=== PATIENT | female | born 1940 | race American Indian/Alaskan Native ===

== ENCOUNTER 2017-09-12 10:42 | Emergency (ER) | payer MEDICARE ==
[2017-09-12 11:44] VITALS: BP 140/82
[2017-09-12 12:29] LABS: Eosinophils % (Auto) 0.5 % (0.0-4.3); Hematocrit 42.2 % (30.3-42.9); Hemoglobin 13.8 gm/dl (10.1-14.3); Mean Corpuscular HGB Conc 33 % (30-34); Mean Corpuscular Hemoglobin 28 pg (28-32); Mean Corpuscular Volume 85 fl (79-97); Platelet Count 314 K/mm3 (140-440); Red Blood Count 4.99 M/mm3 (3.65-5.03); Red Cell Distribution Width 15.1 % (13.2-15.2); White Blood Count 13.3 K/mm3 (4.5-11.0)
[2017-09-12 12:40] LABS: Alanine Aminotransferase 27 units/L (7-56); Albumin 3.8 g/dL (3.9-5); Albumin/Globulin Ratio 1.1 %; Alkaline Phosphatase 156 units/L (35-129); Anion Gap 20 mmol/L; BUN/Creatinine Ratio 15; Blood Urea Nitrogen 12 mg/dL (7-17); Calcium 8.8 mg/dL (8.4-10.2); Carbon Dioxide 25 mmol/L (22-30); Glucose 197 mg/dL (65-100); Potassium 3.3 mmol/L (3.6-5.0); Sodium 144 mmol/L (137-145); Total Protein 7.3 g/dL (6.3-8.2)
[2017-09-12 13:18] LABS: Bacteria,Urine 2+ /HPF (Negative); Mucus,Urine FEW /HPF
[2017-09-12 13:38] LABS: Bilirubin,Urine NEG (Negative); Blood,Urine SM (Negative); Ketones,Urine NEG (Negative); Leukocyte Esterase,Urine TR (Negative); Nitrite,Urine NEG (Negative)
[2017-09-12 13:39] LABS: Protein,Urine >500 mg/dL (Negative)
== END 2017-09-12 13:30 | disposition left against medical advice (07) ==
LOC: ED 10:42
DX: Z53.21 Procedure and treatment not carried out due to patient leaving prior to being seen by health care provider (principal)
CPT/HCPCS: 36415; 80053; 81001; 85025

== ENCOUNTER 2017-09-15 08:31 | Emergency (ER) | payer MEDICARE ==
[2017-09-15 10:39] LABS: Anion Gap 18 mmol/L; BUN/Creatinine Ratio 11; Blood Urea Nitrogen 9 mg/dL (7-17); Calcium 9.2 mg/dL (8.4-10.2); Carbon Dioxide 28 mmol/L (22-30); Chloride 101.5 mmol/L (98-107); Creatine Kinase 123 units/L (30-135); Glucose 190 mg/dL (65-100); Potassium 3.3 mmol/L (3.6-5.0); Sodium 144 mmol/L (137-145)
[2017-09-15 10:40] LABS: Basophils % (Auto) 1.3 % (0.0-1.8); Eosinophils % (Auto) 0.4 % (0.0-4.3); Hematocrit 43.5 % (30.3-42.9); Mean Corpuscular HGB Conc 32 % (30-34); Mean Corpuscular Hemoglobin 27 pg (28-32); Mean Corpuscular Volume 84 fl (79-97); Platelet Count 312 K/mm3 (140-440); Red Blood Count 5.19 M/mm3 (3.65-5.03); Red Cell Distribution Width 15.2 % (13.2-15.2); White Blood Count 12.4 K/mm3 (4.5-11.0)
[2017-09-15] MEDS ORDERED: TORADOL IM ONE (10:45)
[2017-09-15] MEDS ORDERED: K-DUR PO ONE ×2 (11:00→11:05)
--- NOTE | 2017-09-15 11:07 | Emergency Department Report ---
HPI - General Chief Complaint: Pain General Time Seen by Provider: 09/15/17 09:40 - HPI HPI: This is a 77 year-old female who presents to the emergency department, driving herself and to be seen, with a complaint of a one-week history of generalized body pain. She believes that it is secondary to her multiple sclerosis. She also has a past medical history of asthma, diabetes, coronary artery disease, hypertension. She tried some gabapentin that she was prescribed for her symptoms without much relief. She says that she tried to see her primary care doctor regarding the symptoms but that they were away for the day and that she has an appointment coming up in about 10 days. She also has complaint of some pain to the left thumb in which she says that she feels a clicking sensation anytime she moves the thumb. No trauma to this area. Her primary care physician is a Dr. Jossie Frankel. No recent travel or sick contacts at home. She denies any fever, nausea, vomiting, chest pain, shortness of breath, headache or any neurological deficits. ED Past Medical Hx - Past Medical History Previous Medical History?: Yes Hx Hypertension: Yes Hx Heart Attack/AMI: Yes Hx Diabetes: Yes Hx Asthma: Yes Additional medical history: MS - Surgical History Past Surgical History?: Yes Hx Cholecystectomy: Yes Additional Surgical History: fibroids removed - Social History Smoking Status: Never Smoker Substance Use Type: None - Medications Home Medications: Home Medications Medication Instructions Recorded Confirmed Last Taken Type Aspirin EC [Aspirin Enteric Coated 81 mg PO QDAY 07/20/15 07/20/15 Unknown History TAB] AtorvaSTATin [Lipitor] 10 mg PO QDAY 07/20/15 07/20/15 Unknown History Lisinopril [Zestril TAB] 20 mg PO QDAY 07/20/15 07/20/15 Unknown History Metformin HCl [Glucophage] 1,000 mg PO BID 07/20/15 07/20/15 Unknown History Metoprolol [Lopressor TAB] 25 mg PO QDAY 07/20/15 07/20/15 Unknown History Doxycycline [Vibramycin CAP] 100 mg PO Q12HR #20 capsule 07/24/15 Unknown Rx Insulin Aspart Prot/Aspart(Nf) 22 units SUB-Q BIDDIAB 30 Days 07/24/15 Unknown Rx [NovoLOG Mix 70/30 VIAL] Ipratropium/Albuterol Sulfate 1 spray IH QID 30 Days 07/24/15 Unknown Rx [Combivent Respimat] oxyCODONE /ACETAMINOPHEN [Percocet 1 tab PO Q6HR PRN #20 tablet 07/24/15 Unknown Rx 5/325] HYDROcodone/ACETAMINOPHEN [Cascade 1 each PO Q6H PRN #10 tablet 09/15/17 Unknown Rx 5-325 Tablet] ED Review of Systems ROS: Stated complaint: ALL OVER BODY PAIN Other details as noted in HPI Comment: All other systems reviewed and negative Constitutional: denies: chills, fever Eyes: denies: eye pain, eye discharge, vision change ENT: denies: ear pain, throat pain Respiratory: denies: cough, shortness of breath, wheezing Cardiovascular: denies: chest pain, palpitations Gastrointestinal: denies: abdominal pain, nausea, diarrhea Genitourinary: denies: urgency, dysuria, discharge Musculoskeletal: back pain, arthralgia, myalgia Skin: denies: rash, lesions Neurological: denies: headache, weakness, paresthesias Physical Exam - Physical Exam Vital Signs: Vital Signs 09/15/17 09/15/17 08:39 10:02 Temperature 98.7 F Pulse Rate 110 H Respiratory 18 16 Rate Blood Pressure 146/89 O2 Sat by Pulse 98 97 Oximetry Physical Exam: GENERAL: The patient is well-developed well-nourished. HENT: Normocephalic. Atraumatic. Patient has moist mucous membranes. EYES: Extraocular motions are intact. Pupils equal reactive to light bilaterally. NECK: Supple. Trachea is midline. CHEST/LUNGS: Clear to auscultation. There is no respiratory distress noted. HEART/CARDIOVASCULAR: Regular. There is no tachycardia. There is no murmur. ABDOMEN: Abdomen is soft, nontender. Patient has normal bowel sounds. There is no abdominal distention. SKIN: Skin is warm and dry. NEURO: The patient is awake, alert, and oriented. The patient is cooperative. The patient has no focal neurologic deficits. The patient has normal speech and gait. MUSCULOSKELETAL: There is no tenderness to palpation or deformity. Unable to appreciate the patient's complaint of a "click" with left thumb movement. Radial pulses +2 over 4 bilaterally. Privacy Specialist strength +2 over 4 bilaterally. There is no limitation range of motion. There is no evidence of acute injury. ED Course Vital Signs 09/15/17 09/15/17 08:39 10:02 Temperature 98.7 F Pulse Rate 110 H Respiratory 18 16 Rate Blood Pressure 146/89 O2 Sat by Pulse 98 97 Oximetry ED Medical Decision Making - Lab Data Result diagrams: 09/15/17 10:03 09/15/17 10:03 - Radiology Data Radiology results: image reviewed interpreted by me: X-ray of the left hand does not show any fracture, dislocation or any acute process. - Medical Decision Making 77-year-old female presents with some generalized body aches and/or pains. Labs are unremarkable including no signs of infection, electrolyte abnormalities other than some mild hypokalemia, rhabdomyolysis. There has been no trauma. Vital signs stable including being afebrile. He complained of a click and some discomfort to the left thumb so an x-ray was done but does not show any acute process or etiology of her symptoms. She appears safe for discharge home and will be given a referral for an orthopedist regarding her thumb. She has a primary care doctor has been encouraged to follow up sooner than her appointment that is scheduled for 10 days from now. She will return to the ER with any worsening of her symptoms or any acute distress. - Differential Diagnosis osteoarthritis, MS, fibromyalgia, muscle spasms Critical Care Time: No Critical care attestation.: If time is entered above; I have spent that time in minutes in the direct care of this critically ill patient, excluding procedure time. ED Disposition Clinical Impression: Multiple sclerosis, Pain of left thumb Chronic pain Qualifiers: Chronic pain type: other chronic pain Qualified Code(s): G89.29 - Other chronic pain Disposition: - TO HOME OR SELFCARE Is pt being admited?: No Condition: Stable Instructions: Musculoskeletal Pain (ED), Arthralgia (ED) Additional Instructions: Please follow-up with your primary care doctor in the next few days. I have given you a referral for a local orthopedist, Jaida Ramos she would like to follow up regarding your thumb pain. Return to the emergency Department with any worsening of her symptoms, chest pain, shortness of breath, or any acute distress. You have been prescribed a medication that is sedating and therefore should not be taken prior to driving, working, and responsible for children and in no way should be mixed with alcohol of any quantity. Prescriptions: HYDROcodone/ACETAMINOPHEN [Cascade 5-325 Tablet] 1 each PO Q6H PRN #10 tablet PRN Reason: Pain Referrals: PRIMARY CARE, [Primary Care Provider] - TARI MINA MD [Staff Physician] - 3-5 Days Time of Disposition: 12:21
[2017-09-15 11:47] VITALS: BP 134/71
--- NOTE | 2017-09-15 11:47 | XRay Report ---
LEFT HAND RADIOGRAPHS INDICATION: Left hand pain. COMPARISON: None similar. FINDINGS: AP, lateral and oblique left hand radiographs demonstrate mild dorsal soft tissue swelling overlying the metacarpal heads. Bony articulation intact and age-appropriate with few mild degenerative changes. CONCLUSION: No acute left hand bony abnormality, though mild soft tissue swelling dorsally suspected, as described. Please correlate. Thank you for the opportunity to participate in this patient's care.
== END 2017-09-15 12:27 | disposition home or self-care (01) ==
LOC: ED 08:31
DX: G35 Multiple sclerosis (principal); M79.1 Myalgia; G89.29 Other chronic pain; M79.645 Pain in left finger(s); I10 Essential (primary) hypertension; I50.9 Heart failure, unspecified; E11.9 Type 2 diabetes mellitus without complications; J45.909 Unspecified asthma, uncomplicated
CPT/HCPCS: 36415; 73130; 80048; 82550; 84443; 85025; 96372; 99283; J1885

== ENCOUNTER 2017-12-27 09:18 | Emergency (ER) | payer MEDICARE, MEDICAID ==
[2017-12-27 09:34] VITALS: BP 138/87
--- NOTE | 2017-12-27 10:50 | Emergency Department Report ---
Minor Respiratory - HPI Chief Complaint: Upper Respiratory Infection Stated Complaint: SINUS PAIN Time Seen by Provider: 12/27/17 09:48 Duration: over a week Pain Location: Other (headache and facial pain 7 out of 10 and achy) Severity: severe Minor Respiratory: Yes Rhinorrhea (nasal congestion), Yes Sore Throat, Yes Able to Tolerate Fluids, Yes Cough (dry cough), Yes Fever (chills), No Ear Pain ( clogged ear sensation), No Sick Contacts, No Hemoptysis, No Chest Pain, No Shortness of Breath Other History: Patient reports that she has been having and sinus pain and pressure right side of her face with headache for over a week. She reports nasal congestion with dry cough denies any chest pain or shortness of breath. She says she's been taking [id number] cough and cold medication is not helping. Patient says she feels like she has something in her nose. Denies any nausea or vomiting. Denies any blurred vision. Patient with a history of diabetes, hypertension, SD in the past and asthma. ED Review of Systems ROS: Stated complaint: SINUS PAIN Other details as noted in HPI Comment: All other systems reviewed and negative Constitutional: chills, fever Eyes: denies: eye pain, eye discharge ENT: throat pain, congestion. denies: ear pain, hearing loss, epistaxis Respiratory: cough. denies: orthopnea, shortness of breath, SOB with exertion, SOB at rest, stridor, wheezing Cardiovascular: denies: chest pain, palpitations, dyspnea on exertion, edema, syncope, paroxysmal nocturnal dyspnea Gastrointestinal: denies: abdominal pain, nausea, vomiting, diarrhea, constipation Musculoskeletal: denies: back pain, joint swelling, arthralgia, myalgia Skin: denies: rash Neurological: headache. denies: weakness, numbness, paresthesias, confusion, abnormal gait, vertigo ED Past Medical Hx - Past Medical History Previous Medical History?: Yes Hx Hypertension: Yes Hx Heart Attack/AMI: Yes Hx Diabetes: Yes Hx Asthma: Yes Additional medical history: MS - Surgical History Past Surgical History?: Yes Hx Cholecystectomy: Yes Additional Surgical History: fibroids removed - Family History Family history: hypertension - Social History Smoking Status: Never Smoker Substance Use Type: None - Medications Home Medications: Home Medications Medication Instructions Recorded Confirmed Last Taken Type Aspirin EC [Aspirin Enteric Coated 81 mg PO QDAY 07/20/15 07/20/15 Unknown History TAB] AtorvaSTATin [Lipitor] 10 mg PO QDAY 07/20/15 07/20/15 Unknown History Lisinopril [Zestril TAB] 20 mg PO QDAY 07/20/15 07/20/15 Unknown History Metformin HCl [Glucophage] 1,000 mg PO BID 07/20/15 07/20/15 Unknown History Metoprolol [Lopressor TAB] 25 mg PO QDAY 07/20/15 07/20/15 Unknown History Doxycycline [Vibramycin CAP] 100 mg PO Q12HR #20 capsule 07/24/15 Unknown Rx Insulin Aspart Prot/Aspart(Nf) 22 units SUB-Q BIDDIAB 30 Days 07/24/15 Unknown Rx [NovoLOG Mix 70/30 VIAL] units Ipratropium/Albuterol Sulfate 1 spray IH QID 30 Days aer.w.[email or web address] 07/24/15 Unknown Rx [Combivent Respimat] oxyCODONE /ACETAMINOPHEN [Percocet 1 tab PO Q6HR PRN #20 tablet 07/24/15 Unknown Rx 5/325] HYDROcodone/ACETAMINOPHEN [[place] 1 each PO Q6H PRN #10 tablet 09/15/17 Unknown Rx 5-325 Tablet] Acetaminophen [Acetaminophen TAB] 500 mg PO Q6HR PRN #12 tablet 12/27/17 Unknown Rx Amoxicillin/Potassium Clav 1 each PO Q12H 10 Days #20 tablet 12/27/17 Unknown Rx [Augmentin 875-125 Tablet] Cetirizine HCl [ZyrTEC] 10 mg PO QAM 14 Days #14 capsule 12/27/17 Unknown Rx Fluticasone [Flonase] 1 spray NS QDAY 14 Days #1 bottle 12/27/17 Unknown Rx predniSONE [Deltasone] 20 mg PO QDAY 5 Days #5 tab 12/27/17 Unknown Rx Minor Respiratory Exam - Exam General: Vital signs noted. No distress. Alert and acting appropriately. This is a 77-year-old female well-nourished well-developed in no acute distress and nontoxic in appearance HEENT: Yes Pharyngeal Erythema (uvula is midline and oral airways patent.), Yes Moist Mucous Membranes, Yes Rhinorrhea (no congestion), Yes Maxillary Tenderness (right facial tenderness with palpation), No Pharyngeal Exudates, No Conjuctival Injection, No Frontal Tenderness Ear: Neither TM Bulge (Bilateral TM congested without erythema), Neither TM Erythema, Neither EAC Pain, Neither EAC Discharge Neck: Yes Supple (full range of motion, no C-spine tenderness), No Adenopathy Lungs: Yes Good Air Exchange, Yes Cough (dry cough), No Wheezes, No Ronchi, No Stridor, No Labored Respirations, No Retractions, No Use of Accessory Muscles, No Other Abnormal Lung Sounds Heart: Yes Regular (tachycardic at 110, regular rhythm.), No Murmur Abdomen: Yes Normal Bowel Sounds, No Tenderness (nontender to palpate in all quadrants, no guarding no rebound tenderness and normal bowel sounds), No Peritoneal Signs Skin: No Rash, No Edema Neurologic: Alert and oriented, no deficits. Normal exam Musculoskeletal: Unremarkable. Extremity: No clubbing, cyanosis or edema. +2 pulses in all extremities and no neurovascular compromise ED Course Vital Signs 12/27/17 09:31 Temperature 99.2 F Pulse Rate 110 H Respiratory 16 Rate Blood Pressure 138/87 O2 Sat by Pulse 100 Oximetry Vital Signs 12/27/17 12/27/17 09:31 11:06 Temperature 99.2 F Pulse Rate 110 H 88 Respiratory 16 Rate Blood Pressure 138/87 O2 Sat by Pulse 100 Oximetry - Reevaluation(s) Reevaluation #1: 12/27/17 11:07 H and stable throughout ED course. Heart rate is at 88 bpm ED Medical Decision Making - Medical Decision Making ED course: Patient here complaining off and sinus pain to the right side of her face with congestion and headache for over a week. She says she feels like she has a fever and having chills. Physical findings for acute sinusitis, acute headache, upper respiratory with cough and congestion. Patient lungs are clear with O2 sat 100% and respiration 16 and she is in no respiratory distress. I discussed the patient diagnosis treatment plan and follow-up. Patient does have a primary care physician. I also discussed with her that she has right nasal polyp and will need to follow-up with ear nose and throat doctor. Patient voiced understanding of discharge instruction and treatment plan. Discharged home a prescription for prednisone, Tylenol, Augmentin, Flonase and Zyrtec. Critical care attestation.: If time is entered above; I have spent that time in minutes in the direct care of this critically ill patient, excluding procedure time. ED Disposition Clinical Impression: Polyp, nasal, Upper respiratory infection with cough and congestion, Fever in adult Sinusitis, acute Qualifiers: Sinusitis location: unspecified location Recurrence: not specified as recurrent Qualified Code(s): J01.90 - Acute sinusitis, unspecified Nonintractable episodic headache Qualifiers: Headache type: unspecified Qualified Code(s): R51 - Headache Disposition: - TO HOME OR SELFCARE Is pt being admited?: No Does the pt Need Aspirin: No Condition: Stable Instructions: Sinusitis (ED), Upper Respiratory Infection (ED), Acute Headache (ED), Fever in Adults (ED) Additional Instructions: Please increase her fluid intake Flush nostrils with saline nasal spray You have a nasal polyp in your right near so please follow-up with ear nose and throat as discussed. See referral in discharge instruction paperwork. Primary care physician may need to refer you to ear nose and throat based on your insurance Take Tylenol for fever and/or pain. take antibiotic as prescribed F/U with primary care physician as instructed Prescriptions: Acetaminophen [Acetaminophen TAB] 500 mg PO Q6HR PRN #12 tablet PRN Reason: Pain and/or fever Amoxicillin/Potassium Clav [Augmentin 875-125 Tablet] 1 each PO Q12H 10 Days # 20 tablet Cetirizine HCl [ZyrTEC] 10 mg PO QAM 14 Days #14 capsule Fluticasone [Flonase] 1 spray NS QDAY 14 Days #1 bottle predniSONE [Deltasone] 20 mg PO QDAY 5 Days #5 tab Referrals: you're, primary care physician [Other] - 2-3 Days ARY ROTHMAN MD [Staff Physician] - 2-3 Days
== END 2017-12-27 11:36 | disposition home or self-care (01) ==
LOC: ED 09:18
DX: J01.90 Acute sinusitis, unspecified (principal); R51 Headache; J06.9 Acute upper respiratory infection, unspecified; R50.9 Fever, unspecified; I10 Essential (primary) hypertension; I25.2 Old myocardial infarction; E11.9 Type 2 diabetes mellitus without complications; J45.909 Unspecified asthma, uncomplicated
CPT/HCPCS: 99282